=== PATIENT | female | born 1960 | race African-American/Black ===

== ENCOUNTER 2017-01-02 22:45 | Emergency (ER) | payer MEDICARE, MEDICAID ==
[~2017-01-02] VITALS: Ht 165.1 cm; Wt 75.0 kg
[2017-01-02 22:48] VITALS: Ht 165.1 cm; Wt 75.0 kg
[2017-01-03 01:16] VITALS: BP 169/111; RESP 20
[2017-01-03 01:16] LABS: URINE BLOOD (Dip) POC 1+ (NEGATIVE)
--- NOTE | 2017-01-03 01:41 | ERA ---
ER Documentation Chief Complaint Date/Time DATE: 01/03/17 TIME: 01:41 Chief Complaint "body pain, back pain, HPI The patient is a 56-year-old female, presenting to the ER because of low back pain for 2 days, general body pain. She had similar symptoms previously, denies fever, chills, neck pain, chest pain, dyspnea, abdominal pain, dysuria, diarrhea. She does not smoke nor drink Past medical history: Chronic low back pain, hypertension, depression Past surgical history: Left mastectomy and reconstruction, cholecystectomy ROS All systems reviewed and are negative except as per history of present illness. Medications Home Meds Active Scripts Ibuprofen* (Motrin*) 600 Mg Tab, 600 MG PO Q6H Y for PAIN AND OR ELEVATED TEMP, #30 TAB Prov:ZACHARY GARCES MD 01/03/17 Trimethoprim-Sulfamethoxazole* (Bactrim*) 400-80 Mg Tab, 1 TAB PO BID, #20 TAB Prov:ZACHARY GARCES MD 01/03/17 Allergies Allergies: Uncoded Allergies: steroids (Allergy, Unknown, 01/02/17) PMhx/Soc History of Surgery: Yes (L breast mastectomy; reconstruction w latissimus muscl lymph node removal, ) Anesthesia Reaction: No Hx Neurological Disorder: No Hx Respiratory Disorders: No Hx Cardiac Disorders: Yes (HTN) Hx Psychiatric Problems: No Hx Miscellaneous Medical Probl: No Hx Alcohol Use: No Hx Substance Use: No Hx Tobacco Use: No Smoking Status: Never smoker Physical Exam Vitals Vital Signs Date Time Temp Pulse Resp B/P Pulse Ox O2 Delivery O2 Flow Rate FiO2 01/03/17 01:16 20 169/111 97 Room Air 01/02/17 22:48 98.7 66 18 179/119 99 Physical Exam Const: No acute distress. Head: Atraumatic. Eyes: Normal Conjunctiva. ENT: Normal External Ears, Nose and Mouth. Neck: Full range of motion. No meningismus. Resp: Clear to auscultation bilaterally. Cardio: Regular rate and rhythm, no murmurs. Abd: Soft, non distended, normal bowel sounds, non tender. Skin: No petechiae or rashes. Back: No midline or flank tenderness. Ext: No cyanosis, or edema. Neur: Awake and alert. No focal deficit Psych: Normal Mood and Affect. Result Diagram: 01/03/17 0120 01/03/17 0120 Results 24 hrs Laboratory Tests Test 01/03/17 01:18 01/03/17 01:20 01/03/17 02:06 Bedside Urine pH (LAB) 7.0 7.0 Bedside Urine Protein (LAB) Trace Trace Bedside Urine Glucose (UA) Negative Negative Bedside Urine Ketones (LAB) Negative Negative Bedside Urine Blood 1+ 1+ Bedside Urine Nitrite (LAB) Negative Negative Bedside Urine Leukocyte Esterase (L 3+ 1+ White Blood Count 4.410^3/ul Red Blood Count 4.3510^6/ul Hemoglobin 12.2g/dl Hematocrit 38.3% Mean Corpuscular Volume 88.0fl Mean Corpuscular Hemoglobin 28.0pg Mean Corpuscular Hemoglobin Concent 31.9g/dl Red Cell Distribution Width 13.3% Platelet Count 95204^3/UL Mean Platelet Volume 10.5fl Neutrophils % 44.7% Lymphocytes % 42.9% Monocytes % 7.2% Eosinophils % 4.5% Basophils % 0.7% Nucleated Red Blood Cells % 0.0/100WBC Neutrophils # 2.010^3/ul Lymphocytes # 1.910^3/ul Monocytes # 0.310^3/ul Eosinophils # 0.210^3/ul Basophils # 0.010^3/ul Nucleated Red Blood Cells # 0.010^3/ul Sodium Level 149mmol/L Potassium Level 2.9mmol/L Chloride Level 106mmol/L Carbon Dioxide Level 28mmol/L Anion Gap 18 Blood Urea Nitrogen 11mg/dl Creatinine 0.70mg/dl Glucose Level 84mg/dl Calcium Level 9.9mg/dl Total Bilirubin 0.5mg/dl Direct Bilirubin 0.00mg/dl Indirect Bilirubin 0.5mg/dl Aspartate Amino Transf (AST/SGOT) 28IU/L Alanine Aminotransferase (ALT/SGPT) 33IU/L Alkaline Phosphatase 87IU/L Total Protein 7.9g/dl Albumin 4.6g/dl Globulin 3.30g/dl Albumin/Globulin Ratio 1.39 Lipase 63U/L Current Medications Medications (Trade) Dose Ordered Sig/Gabriel Route PRN Reason Start Time Stop Time Status Last Admin Dose Admin Morphine Sulfate (morphine) 2 mg ONCE STAT IV 01/03/17 01:52 01/03/17 01:54 DC 01/03/17 01:57 Ondansetron HCl (Zofran Inj) 4 mg ONCE STAT IV 01/03/17 01:52 01/03/17 01:54 DC 01/03/17 01:57 Ketorolac Tromethamine (Toradol) 30 mg ONCE STAT IV 01/03/17 01:53 01/03/17 01:54 DC 01/03/17 01:58 Potassium Chloride (Klor-Con 20) 60 meq ONCE STAT PO 01/03/17 04:15 01/03/17 04:38 DC 01/03/17 05:08 Procedures/MDM EKG: Read by emergency physician Rate/Rhythm: Normal Sinus Rhythm 61 beats/min QRS, ST, T-waves: No ST elevation, no T inversion Impression: Normal EKG MEDICAL MAKING DECISION: The patient is a 56-year-old female, presenting with acute on chronic low back pain, acute cystitis, acute hypokalemia. She was treated with morphine 2 mg IV and Toradol 30 mg IV for pain and Zofran 4 mg IV for nausea, potassium chloride 60 mEq p.o. for low potassium with good response. The differential diagnoses considered include but are not limited to cholelithiasis, cholecystitis, cystitis, pancreatitis, hepatitis, gastritis, peptic ulcer disease, gastric ulcer, appendicitis, diverticulitis, cholangitis, choledocholithiasis, partial small bowel obstruction. The differential diagnoses considered include but are not limited to caudal equina syndrome, spinal abscess, DJD, diskitis, lumbar radiculopathy. Departure Diagnosis: Primary Impression: Acute exacerbation of chronic low back pain Additional Impressions: Acute hypokalemia UTI (urinary tract infection) Condition: Good Comments She was discharged with Bactrim DS and Motrin I discussed the findings with the patient. I advised the patient to follow-up with the primary physician in about 1-2 days, sooner if needed and return if any concern. ZACHARY GARCES MD January 03, 2017 01:41
[2017-01-03] MEDS ORDERED: morphine 2 MG INJ IV STA (01:52)
[2017-01-03] MEDS ORDERED: ONDANSETRON 4 MG INJ IV STA (01:52)
[2017-01-03] MEDS ORDERED: KETOROLAC 30 MG INJ IV STA (01:53)
[2017-01-03 01:59] LABS: ADD SCAN DIFF NO
[2017-01-03 02:05] LABS: URINE BLOOD (Dip) POC 1+ (NEGATIVE)
[2017-01-03 02:17] LABS: ALBUMIN 4.6 g/dl (3.3-4.9); ALBUMIN/GLOBULIN RATIO 1.39; BILIRUBIN,INDIRECT 0.5 mg/dl (0-1.1); BILIRUBIN,TOTAL 0.5 mg/dl (0.2-1.3); CALCIUM 9.9 mg/dl (8.4-10.2); CREATININE 0.7 mg/dl (0.44-1.00); TOTAL PROTEIN 7.9 g/dl (6.1-8.1)
[2017-01-03 02:28] LABS: BASOPHILS % 0.7 % (0.0-2.0); EOSINOPHILS # 0.2 10^3/ul (0.0-0.5); EOSINOPHILS % 4.5 % (0.0-7.0); HEMATOCRIT 38.3 % (37.0-47.0); HEMOGLOBIN 12.2 g/dl (12.0-16.0); LYMPHOCYTES # 1.9 10^3/ul (0.8-2.9); LYMPHOCYTES % 42.9 % (15.0-51.0); MEAN CORPUSCULAR HGB CONC 31.9 g/dl (32.0-37.0); MEAN PLATELET VOLUME 10.5 fl (7.4-10.4); MONOCYTE # 0.3 10^3/ul (0.3-0.9); MONOCYTES % 7.2 % (0.0-11.0); NEUTROPHILS % 44.7 % (39.0-77.0); PLATELET COUNT 214 10^3/UL (140-415); RED BLOOD COUNT 4.35 10^6/ul (4.20-5.40); RED CELL DISTRIBUTION WIDTH 13.3 % (11.5-14.5); WHITE BLOOD COUNT 4.4 10^3/ul (4.8-10.8)
[2017-01-03 02:36] LABS: POTASSIUM 2.9 mmol/L (3.5-5.1)
[2017-01-03] MEDS ORDERED: POTASSIUM CHLORIDE (SR) 20 MEQ TAB PO STA (04:15)
[2017-01-03] MEDS ORDERED: IBUP-1542 PO (05:11)
[2017-01-03] MEDS ORDERED: BACTRIM PO (05:11)
== END 2017-01-03 07:28 | disposition home or self-care (01) ==
LOC: E/R 22:45
DX: M54.5 Low back pain (principal); E87.6 Hypokalemia; N39.0 Urinary tract infection, site not specified; R11.0 Nausea; I10 Essential (primary) hypertension
CPT/HCPCS: 36415; 80053; 81003; 83690; 85025; 96374; 96375; 99284; J1885; J2270; J2405; 93005